=== PATIENT | female | born 1980 | race Two or more races ===

== ENCOUNTER 2020-07-07 10:26 | Outpatient (CLI) | payer OTHER | END 2020-07-07 10:36 | disposition home or self-care (01) | LOC: RX STUDY 10:26 | PROVIDERS: ATTEND Obstetrics & Gynecology Reproductive Endocrinology | DX: N88.8 Other specified noninflammatory disorders of cervix uteri (principal); N70.91 Salpingitis, unspecified ==

== ENCOUNTER 2022-10-20 11:30 | Outpatient (CLI) | payer OTHER | END 2022-10-20 14:45 | disposition home or self-care (01) | LOC: PRENATAL 11:30 | PROVIDERS: ATTEND Obstetrics & Gynecology Maternal & Fetal Medicine | DX: O35.9XX0 Maternal care for (suspected) fetal abnormality and damage, unspecified, not applicable or unspecified (principal); O35.3XX0 Maternal care for (suspected) damage to fetus from viral disease in mother, not applicable or unspecified; O34.219 Maternal care for unspecified type scar from previous cesarean delivery; Z3A.20 20 weeks gestation of pregnancy ==

== ENCOUNTER 2023-01-10 14:09 | Outpatient (CLI) | payer OTHER | END 2023-01-10 16:02 | disposition home or self-care (01) | LOC: PRENATAL 14:09 | PROVIDERS: ATTEND Obstetrics & Gynecology Maternal & Fetal Medicine | DX: O26.849 Uterine size-date discrepancy, unspecified trimester (principal); O36.8199 Decreased fetal movements, unspecified trimester, other fetus; O09.529 Supervision of elderly multigravida, unspecified trimester; O34.219 Maternal care for unspecified type scar from previous cesarean delivery; Z3A.32 32 weeks gestation of pregnancy ==